=== PATIENT | male | born 1960 | race Caucasian/White ===

== ENCOUNTER 2017-06-25 17:10 | Observation (INO) | payer BC ==
--- NOTE | 2017-06-25 17:18 | CPEKG ---
Heart Rate: 96 RR Interval: 625 P-R Interval: 220 QRSD Interval: 88 QT Interval: 380 QTC Interval: 481 P [place]: 27 QRS [place]: 13 T Wave [place]: 11 EKG Severity - ABNORMAL ECG - EKG Impression: SINUS RHYTHM EKG Impression: FIRST DEGREE AV BLOCK EKG Impression: BORDERLINE PROLONGED QT INTERVAL Electronically Signed By: Lopez Hurst 26-Jun-2017 11:35:53
[2017-06-25] MEDS ORDERED: NITROGLYCERIN 0.4 MG BTL SL PRN (17:28)
[2017-06-25 17:32] LABS: PLATELET COUNT 205 10^3/uL (150-400)
--- NOTE | 2017-06-25 18:09 | EDPHY ---
H & P Stated Complaint: c/o substernal CP/SOB since 2pm today - drinking Lg amount of ETOH X 2wks Time Seen by Provider: 06/25/17 17:17 HPI/ROS: CHIEF COMPLAINT: Chest pressure HISTORY OF PRESENT ILLNESS: This is a 57-year-old male who presents with 2 and 0.5 hr of substernal chest pressure. He describes this as a tightness. There is no radiation but he does report some numbness of the left hand that he has been aware of for the past 24 hr. He feels dizzy and lightheaded, as if he might faint. He feels somewhat short of breath. He did 2 aspirin this morning into aspirin just prior to coming to the emergency department. He has no past medical or surgical history. To the best of his knowledge he does not have diabetes, hypertension, or hyperlipidemia. He smokes a cigar on occasion. He reports heavy alcohol use--a daily 6 pack +3 to 4 mixed drinks. His father had a myocardial infarction at age 50. REVIEW OF SYSTEMS: A ten point review of systems was performed and is negative with the exception of the items mentioned in the HPI. He also reports a dry mouth. Past medical history: None. Past surgical history: None. Family history: Father with coronary artery disease at age 50. Social history: He is here with his . Occasional cigar use. Heavy alcohol use. 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 General Appearance: Alert. Vital signs reviewed. Blood pressure 159/89. Eyes: Pupils equal and round, no conjunctival injection, no discharge. Anicteric. ENT, Mouth: Mucous membranes are slightly dry no oropharyngeal erythema or edema. Neck: No lymphadenopathy, supple. No JVD. Respiratory: Lungs are clear to auscultation; no wheezes, rales, or rhonchi. Cardiovascular: Regular rate and rhythm; no murmur, rub, or gallop. Gastrointestinal: Abdomen is obese, soft and nontender, no masses or organomegaly, bowel sounds normal. Skin: Warm and dry, no rashes on exposed skin, normal color. Back: Nontender to palpation over the thoracolumbar spine. No CVAT. Extremities: No lower extremity edema, no calf tenderness or swelling. Neurological: Alert and oriented. Moving all four extremities easily and equally. Psychiatric: Normal affect. - Personal History Current Tetanus Diphtheria and Acellular Pertussis (TDAP): Yes - Medical/Surgical History Other PMH: denies - Social History Smoking Status: Light smoker Constitutional: Initial Vital Signs Temperature (C) 36.6 C 06/25/17 17:18 Heart Rate 93 06/25/17 17:18 Respiratory Rate 18 06/25/17 17:18 Blood Pressure 159/80 H 06/25/17 17:18 O2 Sat (%) 92 06/25/17 17:18 O2 Delivery Mode Room Air O2 (L/minute) 2 Allergies/Adverse Reactions: No Known Allergies Allergy (Unverified 06/25/17 17:18) Home Medications: Medication Instructions Recorded NK [No Known Home Meds] 06/25/17 Medical Decision Making - Diagnostics EKG Interpretation: 12 lead EKG is interpreted in Trace master View by emergency department physician. Sinus rhythm without acute ischemic changes. Imaging Results: Imaging Impressions Chest X-Ray 06/25/17 17:29 Impression: Normal chest. ED Course/Re-evaluation: 57-year-old male substernal chest pressure for over 2 hr. EKG is without ischemic changes. Initial troponin is normal. Chest x-ray is negative, does not reveal an etiology for chest pain. He is a family history of early coronary artery disease in his father. He has a personal history of alcohol abuse and obesity, no other cardiac risk factors. With 2 sublingual nitroglycerin he had almost complete relief of his pain. He continued to complain of feeling lightheaded, as if he might faint. He has a HEART score of four and is being admitted to the hospital for serial troponins and further evaluation/treatment as needed. He is agreeable with this plan. He will be transferred ordered by ambulance. Differential Diagnosis: Chest pain including but not limited to myocardial ischemia, pulmonary embolus, chest wall pain, pleural inflammation and pulmonary infectious causes. - Data Points Laboratory Results: Laboratory Results 06/25/17 17:23 06/25/17 17:23 06/25/17 06/25/17 17:23 17:23 WBC 7.64 10^3/uL 10^3/uL (3.80-9.50) RBC 5.24 10^6/uL 10^6/uL (4.40-6.38) Hgb 16.1 g/dL g/dL (13.7-17.5) Hct 47.0 % % (40.0-51.0) MCV 89.7 fL fL (81.5-99.8) MCH 30.7 pg pg (27.9-34.1) MCHC 34.3 g/dL g/dL (32.4-36.7) RDW 13.3 % % (11.5-15.2) Plt Count 205 10^3/uL 10^3/uL (150-400) MPV 10.1 fL fL (8.7-11.7) Neut % (Auto) 58.3 % % (39.3-74.2) Lymph % (Auto) 27.5 % % (15.0-45.0) [place] % (Auto) 11.5 % % (4.5-13.0) Eos % (Auto) 1.3 % % (0.6-7.6) Baso % (Auto) 1.3 % % (0.3-1.7) Nucleat RBC Rel Count 0.0 % % (0.0-0.2) Absolute Neuts (auto) 4.45 10^3/uL 10^3/uL (1.70-6.50) Absolute Lymphs (auto) 2.10 10^3/uL 10^3/uL (1.00-3.00) Absolute Monos (auto) 0.88 10^3/uL H 10^3/uL (0.30-0.80) Absolute Eos (auto) 0.10 10^3/uL 10^3/uL (0.03-0.40) Absolute Basos (auto) 0.10 10^3/uL 10^3/uL (0.02-0.10) Absolute Nucleated RBC 0.00 10^3/uL 10^3/uL (0-0.01) Immature Gran % 0.1 % % (0.0-1.1) Immature Gran # 0.01 10^3/uL 10^3/uL (0.00-0.10) Sodium 139 mEq/L mEq/L (134-144) Potassium 3.7 mEq/L mEq/L (3.5-5.2) Chloride 98 mEq/L mEq/L (97-110) Carbon Dioxide 24 mEq/l mEq/l (22-31) Anion Gap 17 mEq/L H mEq/L (8-16) BUN 9 mg/dL mg/dL (7-23) Creatinine 0.6 mg/dL L mg/dL (0.7-1.3) Estimated GFR > 60 Glucose 190 mg/dL H mg/dL (70-100) Calcium 8.4 mg/dL L mg/dL (8.5-10.4) Troponin I < 0.012 ng/mL ng/mL (0.000-0.034) Medications Given: Nitroglycerin (Nitrostat) 0.4 mg SL Q5M PRN PRN Reason: Chest Pain Last Admin: 06/25/17 17:34 Dose: 0.4 mg Departure - Departure Disposition: [facility] Inpatient Acute Clinical Impression: Chest pain Qualifiers: Chest pain type: other chest pain Qualified Code(s): R07.89 - Other chest pain ; R07.8 - Other chest pain Condition: Good
[2017-06-25] MEDS ORDERED: ACETAMINOPHEN 325 MG TAB PO PRN (22:10)
[2017-06-25] MEDS ORDERED: ONDANSETRON 4 MG/2 ML VIAL IVP PRN (22:10)
[2017-06-25] MEDS ORDERED: ONDANSETRON DISINTEGRATING 4 MG TAB PO PRN (22:10)
--- NOTE | 2017-06-25 23:23 | PDGENHP ---
History and Physical - Chief Complaint Chest pain - History of Present Illness 57 yo M w/ no significant PMHx (although he has not seen a Dr in a long time) presents with chest pain. Patient first noticed mild central chest pressure around 2 PM. The discomfort started at rest and did not vary with activity. It persisted for several hours so he presented to ED. He has some associated dizziness as well. He has no prior hx of cardiovascular disease. His father did have CAD in his 50's. Additionally, patient is obese, leads a sedentary lifestyle, and is a heavy drinker. I also suspect he has untreated hypertension and diabetes from his work-up thus far. History Information - Allergies/Home Medication List Allergies/Adverse Reactions: No Known Allergies Allergy (Verified 06/25/17 21:03) Home Medications: Aspirin [Aspirin 325 mg (*)] 325 mg PO DAILY 06/25/17 [Last Taken 06/25/17] I have personally reviewed and updated: family history, medical history - Past Medical History no pertinent PMH - Surgical History Reports: no pertinent surgical hx - Family History Positive for: father with history of CAD younger than 55 - Social History Smoking Status: Current some day smoker Alcohol Use: Heavy (At least a 6 pack daily) Review of Systems Review of Systems: ROS: 10pt was reviewed & negative except for what was stated in HPI & below Physical Exam Physical Exam: Temp Pulse Resp BP Pulse Ox 36.6 C 89 20 171/84 H 96 06/25/17 21:38 06/25/17 21:38 06/25/17 21:38 06/25/17 21:38 06/25/17 21:38 O2 (L/minute) 2 Constitutional: no apparent distress, obese Eyes: PERRL, EOMI Ears, Nose, Mouth, Throat: moist mucous membranes, no oral mucosal ulcers Cardiovascular: regular rate and rhythym, no murmur, rub, or gallop Respiratory: no respiratory distress, clear to auscultation Gastrointestinal: normoactive bowel sounds, soft, non-tender abdomen Skin: warm, normal color Musculoskeletal: full muscle strength, no muscle tenderness Neurologic: AAOx3, CN II-XII Intact Psychiatric: interacting appropriately, not anxious Lab Data & Imaging Review 06/25/17 17:23 06/25/17 17:23 WBC 7.64 10^3/uL (3.80-9.50) 06/25/17 17: RBC 5.24 10^6/uL (4.40-6.38) 06/25/17 17: Hgb 16.1 g/dL (13.7-17.5) 06/25/17 17:23 Hct 47.0 % (40.0-51.0) 06/25/17 17:23 MCV 89.7 fL (81.5-99.8) 06/25/17 17: MCH 30.7 pg (27.9-34.1) 06/25/17 17: MCHC 34.3 g/dL (32.4-36.7) 06/25/17 17: RDW 13.3 % (11.5-15.2) 06/25/17: Plt Count 205 10^3/uL (150-400) 06/25/17 17: MPV 10.1 fL (8.7-11.7) 06/25/17 17: Neut % (Auto) 58.3 % (39.3-74.2) 06/25/17 17: Lymph % (Auto) 27.5 % (15.0-45.0) 06/25/17 17: [place] % (Auto) 11.5 % (4.5-13.0) 06/25/17 17: Eos % (Auto) 1.3 % (0.6-7.6) 06/25/17: Baso % (Auto) 1.3 % (0.3-1.7) 06/25/17: Nucleat RBC Rel Count 0.0 % (0.0-0.2) 06/25/17 17: Absolute Neuts (auto) 4.45 10^3/uL (1.70-6.50) 06/25/17 17: Absolute Lymphs (auto) 2.10 10^3/uL (1.00-3.00) 06/25/17: Absolute Monos (auto) 0.88 10^3/uL (0.30-0.80) H 06/25/17 17: Absolute Eos (auto) 0.10 10^3/uL (0.03-0.40) 06/25/17 17:23 Absolute Basos (auto) 0.10 10^3/uL (0.02-0.10) 06/25/17 17:23 Absolute Nucleated RBC 0.00 10^3/uL (0-0.01) 06/25/17 17:23 Immature Gran % 0.1 % (0.0-1.1) 06/25/17 17:23 Immature Gran # 0.01 10^3/uL (0.00-0.10) 06/25/17 17:23 Sodium 139 mEq/L (134-144) 06/25/17 17:23 Potassium 3.7 mEq/L (3.5-5.2) 06/25/17 17:23 Chloride 98 mEq/L (97-110) 06/25/17 17:23 Carbon Dioxide 24 mEq/l (22-31) 06/25/17 17:23 Anion Gap 17 mEq/L (8-16) H 06/25/17 17:23 BUN 9 mg/dL (7-23) 06/25/17 17:23 Creatinine 0.6 mg/dL (0.7-1.3) L 06/25/17 17:23 Estimated GFR > 60 06/25/17 17:23 Glucose 190 mg/dL (70-100) H 06/25/17 17:23 Calcium 8.4 mg/dL (8.5-10.4) L 06/25/17 17:23 Troponin I < 0.012 ng/mL (0.000-0.034) 06/25/17 17:23 Visualized and Interpreted Chest x-ray results: Yes Chest X-Ray results: no infiltrate, normal Visualized and Interpreted EKG results: Yes EKG Interpretation: Positive for: normal sinsus rhythm, other (1st degree AV block) Assessment & Plan Assessment: 57 yo obese M w/ hx of heavy ETOH use presents with chest pain. Plan: 1. Chest pain - Central chest pressure present for several hours, not varying with exertion. CHRISTI score of 1 for risk factors only. Patient has positive family history, is a heavy drinker, leads a sedentary lifestyle, and likely has untreated hypertension and diabetes. No objective evidence of ischemia thus far to warrant anticoagulation presently. - Admit to PCU for observation - Monitor on telemetry, trend cardiac enzymes - Lipid panel, A1c with AM labs - Will order nuclear stress study noting patient unsure he can handle a Rodo protocol 2. ETOH abuse - Patient drinks at least 6 drinks daily. He has never been admitted to a hospital with withdrawal. - Monitor for signs of withdrawal Diet - NPO @ MN Code - Full Ppx - LMWH Dispo - Admit to PCU under observation status
[2017-06-26 04:30] LABS: PLATELET COUNT 169 10^3/uL (150-400)
[2017-06-26] MEDS ORDERED: ENOXAPARIN 40 MG/0.4 ML SYR SC SCH (09:00)
--- NOTE | 2017-06-26 09:55 | ASMTCASEMG ---
Living Arrangements What is your living Answers: With Spouse arrangement? Who do you live with? Type Of Residence What kind of residence do Answers: House you live in? Discharge Plan Comments Coordination Status Comments Notes: CM spoke w/ MATTIE Garcia regarding d/c POC. Pt is a 57 y/o man admitted for chest pain. Pt has been ordered a stress test. Anticipates that pt will d/c independent when medically stable. No therapies ordered at this time. CM available for changes. Plan: Independent Date Signed: 06/26/2017 09:55 AM Electronically Signed By:SUSAN Duarte
[2017-06-26] MEDS ORDERED: REGADENOSON 0.4 MG/5 ML SYR IVP ONE (10:31)
--- NOTE | 2017-06-26 11:13 | PDCARST ---
CAR Stress Test Results Type of Stress Test: Lexiscan stress test Indication: cp Description of Procedure: After informed consent was obtained, pt was established to ECG, blood pressure, HR and oximetry monitoring. STRESS EKG AND HEMODYNAMIC DATA. Resting heart rate: 76 BPM. Resting ECG: SR. Resting blood pressure: 150/90 mmHg. O2 saturation at rest: 94%. Peak heart rate: 94 BPM. Peak blood pressure: 156/90 mmHg. Arrhythmias: none. Symptoms: The patient experienced no typical symptoms of angina during stress or recovery. Stress/Infusion ECG: No change in rhythm with no significant ST/T wave changes. Stress/infusion O2 saturation: 95% Impression: Uneventful Lexiscan infusion. Conclusion: Await nuclear images.
[2017-06-26 11:52] VITALS: BP 134/96; PULSE 74; RESP 17; TEMP 98.5; O2SAT 90
--- NOTE | 2017-06-26 14:19 | PDDCSUM ---
Discharge Summary Discharge Summary: DISCHARGE DIAGNOSES: -Chest pain, ruled out for FL, no findings to suggest cardiac cause -Diabetes Mellitus type 2, new diagnosis at this time; HgA1c 9 -Elevated blood pressure, suspect essential HTN -Obesity -Pt has noticed occaisional blood in stool, no pain, no anemia, no history of colonoscopy PROCEDURES: Lexiscan stress test with myocardial perfusion imaging: No evidence of perfusion defects and ejection fraction is normal HOSPITAL COURSE SUMMARY: This patient with a family history of heart disease at a premature age comes in with chest pain described as a pressure in the central chest lasting for several hours, unprovoked. It resolved spontaneously. There was no evidence of heart failure, arrhythmia, and he ruled out for myocardial infarction. There is no recurrence of his symptoms here in the hospital. The patient did undergo Lexiscan stress testing which showed no evidence of perfusion abnormality and showed a normal ejection fraction. At this time other concerning causes of the pain are ruled out by his assessment in the emergency room. He and his are notified that there is a small chance of false- negative findings on the stress test imaging, but that overall his risk of acute heart episode is very low. He is aware to have follow-up if he has ongoing pain episodes to either find a different cause or to consider whether we could have a cardiac issue that we are missing on the current assessment. The patient the is obese, has high blood sugars here with hemoglobin A1c of 9, and has elevated blood pressures here. I did extensive conversation with the patient his about the risk factors for vascular disease renal disease etc and the approach recommended for this. As he does have a fairly high hemoglobin A1c am recommending that he start on some metformin at this time and he is agreeable to that. I recommended that he establish with a primary care visit physician in the very near future to follow up on the diabetes care and blood pressure management and recheck his blood pressures. As we only have blood pressures when he comes into the ER with acute chest pain I have not started medication for that now in case this is a stress response. I suspect however that he will need medication and he understands this. I did discuss the importance of lifestyle measures with him and his and that they should follow up with primary care. In addition to all the above the patient is story also includes occasional notice of small amount of bright red blood in his stool without anal rectal or abdominal pain or weight loss. He does not have any evidence of anemia or microcytosis here. He has never had a colonoscopy. Given his age and this symptom is recommended that he establish with a safety person for a colonoscopy. I have given his name and information to Dr. Mcmullen so [facility] knows about him and I have given him there 4. Follow-up including colonoscopy PENDING TEST RESULTS: None MEDICATION CHANGES: Decrease his aspirin dose from 325 mg to 81 mg daily until he has evaluation for rectal bleeding Metformin 850 mg twice daily starting now FOLLOW-UP PLAN: Establish with a primary care here in the community with primary care doctor in the community and make an appointment in the next 1-2 weeks In make an appoint with [facility] for colonoscopy Greater than 35 minutes bedside and care coordination time today
--- NOTE | 2017-06-26 16:36 | ASDISCHSUM ---
Discharge Information Plan Status:Home with No Needs Medically Cleared to Leave:06/25/2017 Discharge Date:06/26/2017 03:55 PM CM D/C Disposition: ADT D/C Disposition:Home, Routine, Self-Care Projected Discharge Date:06/26/2017 12:00 AM Transportation at D/C: Discharge Delay Reason: Follow-Up Date:06/26/2017 12:00 AM Discharge Slot: Final Diagnosis: Placement Information Patient Contact Information Contact Name:NEY Relationship: Address:[address] Work Phone: City:[place] Alternate Phone: [facility]/Zip Code:[place] [address] Email: Financial Information Financial Class:HMO and PPO Plans Primary Plan Desc: OUT OF STATE PPO Primary Plan Number:[id number] Secondary Plan Desc: Secondary Plan Number: Assessment Information [facility] Initial CM Assessment Living Arrangements What is your living Answers: With Spouse arrangement? Who do you live with? Type Of Residence What kind of residence do Answers: House you live in? Discharge Plan Comments Coordination Status Comments Notes: spoke w/ MATTIE Garcia regarding d/c POC. Pt is a 57 y/o man admitted for chest pain. Pt has been ordered a stress test. Anticipates that pt will d/c independent when medically stable. No therapies ordered at this time. CM available for changes. Plan: Independent Date Signed: 06/26/2017 09:55 AM Electronically Signed By:SUSAN Duarte Intervention Information
[2017-06-27] MEDS ORDERED: ASPIRIN 325 MG TAB PO SCH (09:00)
== END 2017-06-26 15:55 | disposition home or self-care (01) ==
LOC: CED 17:10 → CEDHOLD 18:47 → F2W 20:42
PROVIDERS: ADMIT Family Medicine; ATTEND Internal Medicine
DX: R07.9 Chest pain, unspecified (principal); E11.9 Type 2 diabetes mellitus without complications; R03.0 Elevated blood-pressure reading, without diagnosis of hypertension; E66.9 Obesity, unspecified; Z68.41 Body mass index [BMI] 40.0-44.9, adult; K92.1 Melena; F10.10 Alcohol abuse, uncomplicated; Z79.82 Long term (current) use of aspirin; Z82.49 Family history of ischemic heart disease and other diseases of the circulatory system
CPT/HCPCS: 71020; 78452; 93005; 93017; 99285; A9500; G0378; 80048-PO; 84484-PO; 85025-PO; J1650; J2785